=== PATIENT | male | born 1955 | race Caucasian/White ===

== ENCOUNTER → 2021-04-06 | Outpatient (CLI) | payer OTHER ==
[~2021-04-06] MED LIST: ACET325T9 PO; BIOF1TAB7 PO; IBUP-1027 PO; NABU500T11 PO; SAW450CA7 PO; TAMS0.4C97 PO
--- NOTE | 2021-04-06 15:29 | EKG ---
[facility] [address] [place] [address] Test Date: 2021-04-06 Test Time: 15:26:13 Pat Name: ANDERS PARSONS Department: Room: Gender: Manager In Training: : 1955 Requested By: JB PEDROZA Order Number: [id number] Reading MD: Jesus Baxter Measurements Intervals [place] Rate: 60 P: 12 VT: 160 QRS: 22 QRSD: 94 T: 64 QT: 418 QTc: 422 Interpretive Statements SINUS RHYTHM LOW LIMB LEAD VOLTAGE NO SPECIFIC ECG ABNORMALITIES RI6.02 No previous ECG available for comparison Electronically Signed On 04-07-2021 15:28:21 CDT by Jesus Baxter
[2021-04-06 15:30] LABS: PROTHROMBIN TIME PATIENT 12.5 SEC (11.7-14.0)
[2021-04-06 15:35] LABS: ALBUMIN 3.9 g/dL (3.4-5.0); ALBUMIN/GLOBULIN RATIO 1.1 (1.0-1.7); CALCIUM 9.2 mg/dL (8.5-10.1); CREATININE 0.9 mg/dL (0.7-1.3); GFR 84.2; POTASSIUM 3.9 mmol/L (3.5-5.1); TOTAL BILIRUBIN 0.7 mg/dL (0.2-1.0); TOTAL PROTEIN 7.4 g/dL (6.4-8.2)
[2021-04-06 16:01] LABS: BASO # 0.1 x10^3/uL (0.0-0.2); BASO % 1 % (0-3); EOS % 1 % (0-3); LYMPH # 2.1 x10^3/uL (1.0-4.8); LYMPH % 26 % (24-48); MEAN CORPUSCULAR HEMOGLOBIN 33 pg (25-35); MEAN CORPUSCULAR HGB CONC 35 g/dL (31-37); MEAN CORPUSCULAR VOLUME 93 fL (79-100); MONO # 0.7 x10^3/uL (0.0-1.1); MONO % 9 % (0-9); NEUT # 5.2 x10^3/uL (1.8-7.7); NEUT % 64 % (31-73); PLATELET COUNT 244 x10^3/uL (140-400); RED BLOOD COUNT 4.94 x10^6/uL (4.30-5.70); RED CELL DISTRIBUTION WIDTH 13.9 % (11.5-14.5); WHITE BLOOD COUNT 8.1 x10^3/uL (4.0-11.0)
--- NOTE | 2021-04-06 16:54 | RAD ---
EXAM: Chest, 2 views. HISTORY: Neurostimulator replacement. COMPARISON: None. FINDINGS: 2 views of the chest are obtained. There are chronic appearing interstitial changes. There is no consolidation, pleural effusion or pneumothorax. There are a few calcified granulomas. There ar e nodules overlying the lower thorax due to nipple shadows. The heart is normal in size. There are gibbs rgical anchors within the humeral heads. There is a dorsal column stimulator terminating over the mid thoracic spine. IMPRESSION: No acute pulmonary finding. Electronically signed by: Dina Mesa MD (04/06/2021 4:52 PM) [id number]
[2021-04-07 07:18] LABS: HEMOGLOBIN A1C 5.4 % (4.8-5.6)
== END ==
LOC: SURGPAT 13:40
PROVIDERS: ATTEND Neurological Surgery
DX: J84.10 Pulmonary fibrosis, unspecified (principal); R91.8 Other nonspecific abnormal finding of lung field; J84.9 Interstitial pulmonary disease, unspecified
CPT/HCPCS: 36415; 71046; 80053; 83036; 85025; 85610; 85730; 87641; 93005; U0003; U0005

== ENCOUNTER 2021-04-11 07:23 | Observation (INO) | payer OTHER, MEDICARE ==
[2021-04-06 14:44] VITALS: BP 129/72
[~2021-04-11] VITALS: Ht 180.3 cm; Wt 81.3 kg
[2021-04-11] VITALS (9 sets, daily range): BP systolic 93–116; BP diastolic 36–54
[~2021-04-11 07:23] MED LIST changes: +BUPIVACAINE MPF 0.5% 30 ML VIAL. ONE; +CLINDAMYCIN 900MG PREMIX 50 ML IV PRN; +GELATIN SPONGE SIZE 100. ONE; +IV RINGERS,LACTATED 1000ML 1,000 ML IV SCH; +LIDOCAINE 1%/EPI 1:100,000 20 ML VIAL. ONE; +MORPHINE SULFATE 2 MG/ML INJ. IVP PRN; +PROCHLORPERAZINE 10 MG/2 ML VIAL. IVP PRN; +THROMBIN TOPICAL 20,000 UNIT SPRAY.SYRN KIT TP ONE; +fentaNYL PF VIAL 100 MCG/2 ML VIAL IVP PRN
[2021-04-11 07:52] LABS: BILIRUBIN,URINE NEGATIVE (NEG); CLARITY,URINE CLEAR; COLOR,URINE YELLOW; NITRITE,URINE NEGATIVE (NEG); PROTEIN,URINE NEGATIVE (NEG-TRACE); UROBILINOGEN,URINE 0.2 mg/dL (0.2 mg/dL)
[2021-04-11] MEDS ORDERED: REMIFENTANIL 2 MG VIAL. IV ONE (08:07)
[2021-04-11] MEDS ORDERED: ONDANSETRON PF 4 MG/2 ML VIAL. ONE (08:07)
[2021-04-11] MEDS ORDERED: DEXAMETHASONE SOD PHOS 4 MG/ML VIAL ONE (08:07)
[2021-04-11] MEDS ORDERED: ROCURONIUM 50 MG/5 ML VIAL. ONE (08:07)
[2021-04-11] MEDS ORDERED: LIDOCAINE 2% PF 5 ML VIAL. ONE (08:07)
[2021-04-11] MEDS ORDERED: SUCCINYLCHOLINE 200 MG/10 ML VIAL. ONE (08:07)
[2021-04-11] MEDS ORDERED: fentaNYL PF VIAL 100 MCG/2 ML VIAL ONE (08:07)
[2021-04-11] MEDS ORDERED: PROPOFOL 10 MG/ML (20ML) VIAL. IV ONE (08:07)
[2021-04-11] MEDS ORDERED: PROPOFOL 50 ML IV ONE ×2 (08:07→12:30)
[2021-04-11 08:08] LABS: BACTERIA,URINE 0 /HPF (0-FEW); RBC,URINE 0 /HPF (0-2); WBC,URINE 0 /HPF (0-4)
[2021-04-11] MEDS ORDERED: PHENYLEPHRINE 10 MG/ML VIAL. ONE (08:27)
[2021-04-11] MEDS ORDERED: MIDAZOLAM HCL/PF 2 MG/2 ML VIAL. ONE (08:28)
[2021-04-11] MEDS ORDERED: GLYCOPYRROLATE 1 MG/5 ML VIAL. ONE (09:24)
[2021-04-11] MEDS ORDERED: DEXAMETHASONE SOD PHOS 20 MG/5 ML VIAL. ONE (09:28)
[2021-04-11] MEDS ORDERED: DESFLURANE > 120 MINUTES IH ONE (10:54)
[2021-04-11] MEDS ORDERED: NEOSTIGMINE METHYLSULFATE 5 MG/5 ML SYRINGE. ONE (11:22)
[2021-04-11] MEDS ORDERED: REMIFENTANIL 1 MG VIAL. IV ONE (12:22)
[2021-04-11] MEDS ORDERED: VANCOMYCIN 1 GM VIAL. ONE (13:02)
--- NOTE | 2021-04-11 13:51 | PDOC ---
BRIEF OPERATIVE NOTE Date: Apr 11, 2021 Pre-Op Diagnosis back pain, leg pain, migration of spinal cord stimulator lead, nonfunctioning spinal cord stimulator paddle lead Post-Op Diagnosis same Procedure Performed T9 laminectomy and partial T7 laminectomy for removal of spinal cord stimulator system with replacement of spinal cord stimulator system paddle lead at T8 with connection to new pulse generator right flank Surgeon Ivonne Anesthesia Type: General Blood Loss 50mL Specimens Obtained none Findings new system with normal impedances and midline placement of paddle lead at T8, neuromonitoring baseline throughout the procedure Complications none apparent JB PEDROZA MD Apr 11, 2021 13:51
[2021-04-11] MEDS: fentaNYL PF VIAL 100 MCG/2 ML VIAL IVP PRN ×2 (13:55→14:22)
[2021-04-11] MEDS ORDERED: 0.9 % SODIUM CHLORIDE 10 ML DISP.SYRIN. IV PRN (14:00)
[2021-04-11] MEDS ORDERED: MAG HYDROX/ALUMINUM HYD/SIMETH 30 ML ORAL.SUSP PO PRN (14:00)
[2021-04-11] MEDS ORDERED: ZOLPIDEM 5 MG TABLET. PO PRN (14:00)
[2021-04-11] MEDS ORDERED: NALOXONE 0.4 MG/ML VIAL. IV PRN ×2 (14:00)
[2021-04-11] MEDS ORDERED: MAGNESIUM HYDROXIDE 2,400 MG/30 ML ORAL.SUSP. PO PRN (14:00)
[2021-04-11] MEDS ORDERED: oxyCODONE/APAP 5/325 1 TAB TABLET PO PRN (14:00)
[2021-04-11] MEDS ORDERED: ACETAMINOPHEN 325 MG TABLET. PO PRN (14:00)
[2021-04-11] MEDS ORDERED: CALCIUM CARBONATE 500 MG TAB.CHEW PO PRN (14:00)
[2021-04-11] MEDS ORDERED: diphenhydrAMINE HCL 25 MG CAPSULE PO PRN (14:00)
[2021-04-11] MEDS ORDERED: ONDANSETRON PF 4 MG/2 ML VIAL. IVP PRN (14:00)
[2021-04-11] MEDS ORDERED: diphenhydrAMINE 50 MG/ML VIAL IV PRN (14:00)
[2021-04-11] MEDS ORDERED: IV NORMAL SALINE 1000ML BAG 1,000 ML IV SCH (14:00)
[2021-04-11] MEDS: HYDROmorphone 2 MG/ML VIAL IVP PRN ×4 (14:33→15:12)
[2021-04-11] MEDS ORDERED: fentaNYL PF VIAL 100 MCG/2 ML VIAL IVP PRN ×2 (16:30)
[2021-04-11] MEDS: CALCIUM CARB/VIT D3 500/200 TABLET. PO SCH (17:00)
--- NOTE | 2021-04-11 17:36 | NUR ---
Pt arrived to floor @ 1530 via bed. and daughter waiting in room for pt
[2021-04-11] MEDS: METHOCARBAMOL 750 MG TABLET PO SCH ×2 (18:53→22:06)
[2021-04-11] MEDS: FERROUS SULFATE 325 MG TABLET. PO SCH (18:53)
[2021-04-11] MEDS: DOCUSATE SODIUM 100 MG CAPSULE. PO SCH (19:43)
[2021-04-11] MEDS: SENNOSIDES/DOCUSATE 8.6/50MG TABLET. PO SCH (20:16)
[2021-04-11] MEDS ORDERED: TAMSULOSIN 0.4 MG CAP.ER.24H. PO SCH (21:00)
[2021-04-12] MEDS: oxyCODONE/APAP 5/325 1 TAB TABLET PO PRN ×2 (01:39→08:04)
[2021-04-12 03:02] VITALS: BP 91/42
[2021-04-12 07:00] VITALS: BP 100/48
[2021-04-12] MEDS: FERROUS SULFATE 325 MG TABLET. PO SCH (07:56)
[2021-04-12] MEDS: CALCIUM CARB/VIT D3 500/200 TABLET. PO SCH (07:57)
[2021-04-12] MEDS: DOCUSATE SODIUM 100 MG CAPSULE. PO SCH (08:06)
[2021-04-12] MEDS: SENNOSIDES/DOCUSATE 8.6/50MG TABLET. PO SCH (08:06)
[2021-04-12] MEDS: METHOCARBAMOL 750 MG TABLET PO SCH (08:06)
[2021-04-12] MEDS ORDERED: MELOXICAM 7.5 MG TABLET PO SCH (09:00)
[2021-04-12] MEDS ORDERED: NON FORMULARY ITEM (Saw Palmetto Fruit (Saw Palmetto) 450 MG) PO SCH (09:00)
[2021-04-12] MEDS ORDERED: MULTIVITAMIN with MINERAL TABLET. PO SCH (09:00)
[2021-04-12] MEDS ORDERED: VITAMIN B COMPLEX TABLET. PO SCH (09:00)
[2021-04-12 11:00] VITALS: BP 107/54
--- NOTE | 2021-04-12 11:08 | PDOC ---
Date of Service: DATE: 04/12/21 TIME: 11:05 Progress Note: S: Denies acute complaints. Incisional discomfort controlled with po medication. O: AF/VSS, AAOx4, NAD, JACKSON 5/5, sensation intact LT, dressings c/d/i A: POD 1 removal and replacement of thoracic spinal cord stimulator system P: Joseph architectural representative to program device. D/C home today with standard post op restrictions. Justifications for Admission Other Justification JB PEDROZA MD Apr 12, 2021 11:08
[2021-04-12] MEDS ORDERED: OXYC1TAB15 PO (11:18)
[2021-04-12] MEDS ORDERED: METH-562 PO (11:18)
[2021-04-12] MEDS ORDERED: SENN-209 PO (11:18)
--- NOTE | 2021-04-12 13:10 | NUR ---
Pt discharged to home. Pt taken out by wheelchair accompanied by and daughter in personal vehicle.
[2021-04-14] MEDS ORDERED: OXYC-325 PO (11:50)
--- NOTE | 2021-04-19 13:08 | OP ---
DATE OF SURGERY: 04/11/2021 SURGEON: Richardson Coronado MD PROCEDURE PERFORMED: Partial bilateral T7 laminectomy, bilateral T9 laminectomy, bilateral T8 hemilaminotomy for removal of spinal cord stimulator paddle lead and pulse generator with removal of migrated stimulator wire lead with replacement with a paddle lead stimulator at thoracic 8 with tunneling of the extension wires and placement of new intermittent pulse generator in the flank. Intraoperative use of neuromonitoring. Impedance check and initial programing of the device. MaPS hardware was utilized. PREOPERATIVE DIAGNOSES: Low back and bilateral leg pain with malfunctioning paddle lead spinal cord stimulator device and migration of thoracic wire lead. ANESTHESIA: General. COMPLICATIONS: None. INDICATIONS: The patient is a 66-year-old male with chronic low back and leg pain. He has had placement of a thoracic spinal cord stimulator paddle lead a number of years ago by an outside surgeon. He has had limited benefit from this. More recently, his pain management physician instituted a wire lead just caudal to the previously placed paddle lead with good therapeutic result. This wire lead has since migrated caudally and the system is no longer effective. Please refer to the patient's chart for additional detail. DESCRIPTION OF PROCEDURE: After informed consent was obtained, the patient was brought to the operating room. He was placed under general anesthesia. He was placed in the prone position on the [place] table. All pressure points were checked and padded appropriately. Clindamycin was instituted as a prophylactic antibiotic. The patient had 3 previous incisions, one in the mid thoracic region, one in the thoracolumbar region and one in the right flank at the pulse generator site. All these areas were prepped and draped in the usual sterile fashion including more cephalad preparation to the previous thoracic incision. The prior system was visualized with fluoroscopy and a vertical incision. Vertical incision over the thoracic region was reopened with scalpel and blunt dissection techniques. The previous system extension wires were exposed and the anchors were disconnected from the adjacent tissue and these were followed to the point of insertion just caudal to the thoracic 9 region. The previous paddle lead was located in the region of thoracic 7. For safe removal of this paddle lead, a partial bilateral hemilaminectomy was performed to the caudal region of thoracic 7 to expose the paddle. This was gently removed from the epidural space on this region. It was removed in a cephalad direction after sectioning the wires caudally. The caudal portion of the wires was then easily freed from the epidural space. Upon removal of this, the flank incision was reopened with a 10 blade scalpel. The intermittent pulse generator was exposed and removed. The previous thoracolumbar incision was reopened with a scalpel and the anchor for the previous wire lead was exposed and disconnected. The wire lead was subsequently removed from the epidural space without problems. After this was free, the entire system was completely removed, verified with fluoroscopy throughout all maneuvers of removal of the epidural hardware. Neuro monitoring potentials including EMG, motor and somatosensory potentials all remained baseline. The new target site of thoracic 8 for the new paddle lead stimulator was identified. Bilateral thoracic 9 laminectomy was performed to create a trajectory to insert the stimulator paddle lead in the posterior epidural space of thoracic 8. Significant scar tissue was encountered at this region. This was freed with a blunt nerve hook as well as a [place] very gently from the caudal exposure from the thoracic 9 laminectomy and also from the cephalad exposure from the partial thoracic 7 laminectomy. Additionally, bilateral hemilaminotomy was performed with a pneumatic drill and [place] rongeurs at thoracic 8 to allow further dissection of scar tissue which was preventing the insertion of the paddle lead at thoracic 8. Once this was complete, the new paddle lead was gently inserted into the epidural space under the lamina of thoracic 8. The position of the paddle lead was verified with fluoroscopy and was noted to be in a good midline position. Once this was verified, the extension wires were secured with silk suture to the adjacent soft tissue just caudal to the insertion site. A passer was utilized to create a trajectory from the thoracic incision to the flank incision to tunnel the extension wires. Just prior to this, a new pocket from the flank incision was made just cephalad to the prior pulse generator because the pocket of the prior location of the pulse generator was bothersome to the patient and he wished it to be slightly more cephalad above the belt line. Once this was complete, the wires were tunneled to the new pocket and connected to the pulse generator and tightened and secured according to the entry level sales consultant's specification. My Top 10 was used for the thoracic spinal cord stimulator system. Once this was complete, the pulse generator was gently inserted into the pocket created in the flank and secured with anchoring silk sutures. Upon completion of placement and connection of the pulse generator to the extension wires, the impedances were noted to be within normal limits. Once this was complete, all wounds were generously irrigated. Vancomycin powder was instituted as a prophylactic agent and the incisions prior to closure, pristine hemostasis was achieved with irrigation and some use of bipolar electrocautery. Incisions were closed in a layered fashion with the fascia being reapproximated at the thoracic incision with 0 Vicryl. The subcutaneous tissues were reapproximated with 2-0 Vicryl in interrupted inverted fashion. Skin was reapproximated with 4-0 Vicryl in a running subcuticular fashion. Similarly, the subcutaneous tissues of the thoracolumbar incision were closed with 2-0 Vicryl in interrupted inverted fashion. The skin was reapproximated with 4-0 Vicryl in a running subcuticular fashion. The pocket of the pulse generator was closed with 0 Vicryl in simple interrupted fashion. The subcutaneous tissues of the flank incision was closed with 2-0 Vicryl in interrupted inverted fashion and the skin was reapproximated with 4-0 Vicryl in a running subcuticular fashion. Mastisol and Steri-Strips were applied to all incisions and all incisions were dressed with a Telfa, 4 x 4, and Tegaderm. At the end of the procedure, all needle and sponge counts were correct x 2. Neuromonitoring remained stable and at baseline throughout all maneuvers during the entirety of the procedure and at the end of the procedure. Fluoroscopy indicated the new paddle lead in a stable midline position at thoracic 8. The patient was subsequently extubated in the operating room and taken to recovery in stable condition. There were no intraprocedural complications apparent. MARLA DR: Amara TID: [id number] SERGE
--- NOTE | 2021-04-20 00:48 | HP ---
ADMIT DATE: 04/11/2021 CHIEF COMPLAINT: Back and leg pain, presents with spinal cord stimulator. HISTORY OF PRESENT ILLNESS: The patient is a 66-year-old gentleman who has a prior placement of a thoracic paddle lead stimulator placed at the T7 region by an outside surgeon several years ago for back and right leg pain. This produced some efficacy, but was fairly marginal. After multiple reprogramming, he more recently underwent placement of a wire lead just caudal to the paddle lead location. This produced very good efficacy with significant improvement of back and leg pain; however, he noted reduced pain efficacy from the system after he underwent an unrelated surgical procedure. On imaging, it was noted that the lead wire had caudally migrated from its original position and so he presents for evaluation of these things with potential removal/revision of the stimulator. PAST SURGICAL HISTORY: He has a history of prior spinal cord stimulator placement with a paddle lead and revision with a wire lead placed caudal to the paddle lead. FAMILY HISTORY: His father , status post angioplasty in 1998. His mother is alive. SOCIAL HISTORY: He denies use of tobacco, alcohol or illicit drugs. He is and retired. He wears a seatbelt. MEDICATIONS: Include bioflavonoid products Luann-C, Nabumetone, tamsulosin. ALLERGIES: PENICILLIN, TRAMADOL, AZITHROMYCIN, CYCLOBENZAPRINE, DICLOFENAC, DULOXETINE, METAXALONE, NAPROSYN, NSAIDS, PREGABALIN. REVIEW OF SYSTEMS: Negative for weight changes. Generally healthy. No change in strength or exercise tolerance. No headaches, no vertigo, no injury to the head. Normal vision, no diplopia, no tearing, no scotoma, no pain. He has no changes in hearing, no tinnitus. No bleeding, no vertigo, no epistaxis. No coryza. No obstruction, no nasal discharge. No stiffness or pain in the neck. No tenderness in the neck. No dyspnea, wheezing, coughing or hemoptysis. He denies chest pains or palpitations. He denies changes in appetite. No dysphagia or abdominal pain. No bowel habit changes. No emesis. No melena. No urinary urgency. No dysuria, no change in nature of urine. No weakness, no tremor, no seizures, no changes in mentation, no ataxia. PHYSICAL EXAMINATION: VITAL SIGNS: He is 70 inches tall, he weighs 189 pounds, BMI is 27.2. He rates his pain frequently 10/10. GENERAL: He is awake, alert and oriented x 4. He is in no acute distress at this time. He is cooperative with the exam. HEENT: Head is normocephalic and atraumatic. NECK: Supple and nontender. LUNGS: Respirations are even and nonlabored. SKIN: Skin turgor is normal. EXTREMITIES: Pulses are equal. No cyanosis, clubbing or edema. NEUROLOGIC: He moves all extremities with good range of motion. Pulses are regular. Mentation and speech are normal. He comprehends and follows commands without difficulty. Cranial nerves II-XII are intact bilaterally. Strength is 5/5 throughout all major muscle groups in the bilateral upper and bilateral lower extremities. Deep tendon reflexes are symmetric. Sensation is intact to light touch. Cerebellar function is normal in the upper and lower extremities bilaterally, ambulates with a normal stance and stride. He has multiple incisions on his back, which are well healed. His intermittent pulse generator is palpated, it is nontender. IMAGING: He has plain film imaging showing caudal migration of the wire lead down to the T11-T12 region. There is a lumbar CT myelogram from 12/27/2020. Again, no wire lead is noted at the T11-T12 region. There are diffuse degenerative changes most prominent at L2-L3. There are no disk herniations or high-grade stenosis noted. There is a thoracic CT myelogram from 12/27/2020. The paddle leads and wire leads are noted at T7 and T11-12 respectively. There were no herniations or high-grade stenosis in the thoracic spine. ASSESSMENT AND PLAN: This is a 66-year-old male with caudal migration of the thoracic spinal cord stimulator lead wire, back pain, leg pain, lumbar spondylosis and malfunction of the paddle lead system. Imaging findings and potential options for revision of the spinal cord stimulator system were discussed. He wishes to have an MRI compatible system. Based on these things and the information above, it was recommended that removal of the prior paddle system that is not MRI compatible with replacement of a new paddle system at the original lead wire location just caudal to the paddle lead where the wire lead provided good efficacy for its migration was discussed with placement of a completely new spinal cord stimulator system at T8. The risks, benefits, and expectations of this procedure were discussed. After noting these things, he elected to proceed. All questions were answered and all are in agreement. MC/GONZALO/COURTNEY DR: MC/clemente TID: [id number] [facility]
== END 2021-04-12 13:30 | disposition home or self-care (01) ==
LOC: INTOOBSV 07:23 → OPSVCIP 07:23 → EDUNIT# 09:00 → 4 NORTH 16:03
PROVIDERS: ADMIT Neurological Surgery; ATTEND Neurological Surgery
DX: T85.113A Breakdown (mechanical) of implanted electronic neurostimulator, generator, initial encounter (principal); M47.816 Spondylosis without myelopathy or radiculopathy, lumbar region; M54.5 Low back pain; G89.29 Other chronic pain; Y75.2 Prosthetic and other implants, materials and neurological devices associated with adverse incidents; Z98.890 Other specified postprocedural states
CPT/HCPCS: 63664; 63685; 81001; 96361; 96374; A4364; A4556; A4930; A6254; A6255; A6258; C1767; C1778; G0378; J0330; J1100; J1170; J2250; J2370; J2704; J2710; J3010; J3370; J3490; J7030; J7120; 76000; A4222; A4452; A4657; G0379; J2405